=== PATIENT | male | born 1950 | race Caucasian/White ===

== ENCOUNTER 2020-06-16 12:16 | Outpatient (REF) | payer MEDICARE, SELFPAY ==
[2020-06-16 13:42] LABS: Glucose Urine UA NEG (NEG); Leukocyte Esterase Urine NEG (NEG); Nitrite Urine NEG (NEG); Urine Blood 2+ (NEG); Urine Ketones NEG (NEG); Urine Protein NEG (NEG-TRACE)
[2020-06-16 13:45] LABS: Appearance Urine CLEAR; Color Urine YELLOW
[2020-06-16 13:57] LABS: WBC Urine 0 /HPF (0-4)
[2020-06-16 14:08] LABS: Blood Urea Nitrogen 11 mg/dL (9-16); Estimated Glomerular Filt Rate > 60
[2020-06-16 14:26] LABS: Anion Gap 14 (12-20); Carbon Dioxide 43 mmol/L (22-29); Chloride 90 mmol/L (96-108); Potassium 4.7 mmol/L (3.3-5.1); Sodium 142 mmol/L (135-145)
== END 2020-06-16 12:17 | disposition home or self-care (01) ==
LOC: HO.WFDLDS 12:16
PROVIDERS: Visit Provider Internal Medicine
DX: I50.9 Heart failure, unspecified (principal); N39.0 Urinary tract infection, site not specified
CPT/HCPCS: 36415; 80051; 81001; 82565; 84520

== ENCOUNTER 2020-09-02 11:18 | Outpatient (REF) | payer MEDICARE, SELFPAY ==
[2020-09-02 14:21] LABS: B Type Natriuretic Peptide 38 pg/mL (<100)
[2020-09-02 14:31] LABS: Anion Gap 11 (12-20); Blood Urea Nitrogen 16 mg/dL (9-16); Carbon Dioxide 45 mmol/L (22-29); Chloride 89 mmol/L (96-108); Estimated Glomerular Filt Rate > 60; Magnesium 1.5 mg/dL (1.6-2.6); Potassium 4.3 mmol/L (3.3-5.1); Sodium 141 mmol/L (135-145)
== END 2020-09-02 11:19 | disposition home or self-care (01) ==
LOC: HO.WFDLDS 11:18
PROVIDERS: Visit Provider Internal Medicine
DX: I50.9 Heart failure, unspecified (principal); R00.2 Palpitations; I49.3 Ventricular premature depolarization
CPT/HCPCS: 36415; 80051; 82565; 83735; 83880; 84520